=== PATIENT | male | born 1950 | race Caucasian/White ===

== ENCOUNTER 2023-03-26 12:34 | Outpatient (AMB) | payer OTHER, SELFPAY ==
--- NOTE | 2023-03-26 12:35 | MHC.OFFVIS ---
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 He denies any fevers or chills. He continues to walk for exercise. He does not take any medicines for his discomfort. Allergies No Known Allergies Allergy (Verified 03/26/23 12:37) Medication List - Last Reconciled 03/26/23 by Ryan Briceno MD atorvastatin 40 mg PO DAILY hydrochlorothiazide 0 mg PO irbesartan 300 mg PO DAILY metformin 500 mg PO BID metoprolol succinate ER 100 mg PO DAILY omeprazole 20 mg PO DAILY Physical Exam Const Other: Well-nourished well-developed very friendly male awake alert and oriented x3 in no acute distress Extrem Other: Bilateral lower extremity examination shows good capillary refill, no skin lesions noted, normal sensation light touch Bilateral knee examination shows that the surgical incisions are well healed, no erythema, full active extension and flexion to 120 degrees, his patellae track well Results Reviewed Results Reviewed: X-rays of the patient's bilateral knee show total knee arthroplasties condition with no signs of loosening, no acute bony abnormalities Assessment & Plan Assessment & Plan (1) Left knee pain: Code(s): M25.562 - Pain in left knee (2) Right knee pain: Code(s): M25.561 - Pain in right knee Plan: Mr. Westbrook continues to do very well after undergoing left total knee replacement surgery on 01/10/2022 as well as right total knee replacement surgery on 08/15/2022. He will continue with his home exercise program. He does know to take antibiotics before any dental work. He will contact me prior to his annual follow-up appointment should any questions or concerns arise. Feel free to call me at any time should questions regarding his orthopedic management arise. I spent 22 minutes in reviewing the patient's records and imaging studies, seeing the patient and documenting in the medical record. Orders: Orders XR knee LT 3V Today M25.562 - Pain in left knee XR knee RT 3V Today M25.561 - Pain in right knee Coding Level of Care Code Est Pt Level 2 (03409) Diagnoses Left knee pain M25.562 Right knee pain M25.561
== END 2023-03-26 13:33 | disposition home or self-care (01) ==
PROVIDERS: Visit Provider Orthopaedic Surgery
DX: M25.562 Pain in left knee (principal); M25.561 Pain in right knee
CPT/HCPCS: 99212

== ENCOUNTER 2023-03-26 12:34 | Outpatient (REF) | payer OTHER, SELFPAY ==
--- NOTE | ~2023-03-26 | XR_ITS ---
EXAMINATION: XR KNEE, LEFT XR KNEE, RIGHT CLINICAL INFORMATION: Bilateral knee pain COMPARISON: None available. TECHNIQUE: 3 views of each knee knee. FINDINGS: There has been bilateral total knee arthroplasty. The prosthetic components appear intact and normally aligned. No fracture or dislocation is evident. No joint effusion is appreciated. There is anterior soft tissue swelling in the right knee. XR/XR knee RT 3V IMPRESSION: Status post bilateral total knee arthroplasty. No fracture or dislocation in either knee. Anterior soft tissue swelling in the right knee.
--- NOTE | ~2023-03-26 | XR_ITS ---
EXAMINATION: XR KNEE, LEFT XR KNEE, RIGHT CLINICAL INFORMATION: Bilateral knee pain COMPARISON: None available. TECHNIQUE: 3 views of each knee knee. FINDINGS: There has been bilateral total knee arthroplasty. The prosthetic components appear intact and normally aligned. No fracture or dislocation is evident. No joint effusion is appreciated. There is anterior soft tissue swelling in the right knee. XR/XR knee LT 3V IMPRESSION: Status post bilateral total knee arthroplasty. No fracture or dislocation in either knee. Anterior soft tissue swelling in the right knee.
== END 2023-03-26 12:35 | disposition home or self-care (01) ==
LOC: HO.HOSX 12:34
PROVIDERS: Visit Provider Orthopaedic Surgery
DX: M25.561 Pain in right knee (principal); M25.562 Pain in left knee
CPT/HCPCS: 73562